=== PATIENT | male | born 1960 | race Caucasian/White ===

== ENCOUNTER 2023-04-07 10:12 | Outpatient (CLI) | payer OTHER, SELFPAY ==
--- NOTE | 2023-04-07 11:11 | ECG_ITS ---
Measurements Intervals [place] Rate: 71 P: 18 OK: 174 QRS: -12 QRSD: 98 T: 53 QT: 372 QTc: 407 Interpretive Statements SINUS RHYTHM MODERATE VOLTAGE CRITERIA FOR LVH, CONSIDER NORMAL VARIANT [MEETS CRITERIA IN ONE OF: R(aVL), S(V1), R(V5), R(V5/V6)+S(V1)] NO PREVIOUS ECG AVAILABLE FOR COMPARISON Electronically Signed On 04-07-2023 11:43:58 CDT by Marla See M.D.
[2023-04-07 12:38] LABS: Hemoglobin A1C 5.1 % (<5.7)
== END 2023-04-07 10:13 | disposition home or self-care (01) ==
LOC: ANHSURGERY 10:21
PROVIDERS: Visit Provider Urology
DX: Z01.818 Encounter for other preprocedural examination (principal); N52.9 Male erectile dysfunction, unspecified; I10 Essential (primary) hypertension
CPT/HCPCS: 36415; 83036; 87086; 93005

== ENCOUNTER 2023-11-05 10:30 | Outpatient (CLI) | payer OTHER, SELFPAY ==
[2023-11-05 13:14] LABS: Hemoglobin A1C 5.3 % (<5.7)
== END 2023-11-05 10:31 | disposition home or self-care (01) ==
LOC: ANHSURGERY 10:34
PROVIDERS: Visit Provider Urology
DX: Z01.818 Encounter for other preprocedural examination (principal); N52.9 Male erectile dysfunction, unspecified
CPT/HCPCS: 36415; 83036; 87086

== ENCOUNTER 2023-11-11 01:01 | Day surgery (SDC) | payer OTHER, SELFPAY ==
[2023-11-03 08:27] VITALS: BMI 31.2
--- NOTE | 2023-11-03 08:28 | PC.NURSE ---
Report to the Outpatient Waiting Room, entrance under the green pavilion located off [facility], at time _0830_ on date _[id number]_. Planned Procedure Time: _1030_. Time changes happen often and if your time is changed the preop area will call you the afternoon before. - You and your visitor will be asked to self-screen and do not enter if you have any COVID symptoms. - A mask is optional within the hospital at this time. Patients may have clear liquids (water, carbonated beverages, clear teas, apple juice) until 3 hours prior to surgery with a maximum of 20 ounces. - No food from midnight until time of surgery Take the following medications with a SIP of water the morning of surgery: __Amlodipine, Levothyroxine, Metoprolol and Sertraline. DO NOT STOP ANY OF YOUR OTHER PRESCRIPTION MEDICATIONS PRIOR TO SURGERY ?EXCEPT THE FOLLOWING Medications to discontinue per physician ___Vitamin D3 Date to take last zoxg__[id number]____ Check with Dr Duenas's office if need to hold Ibuprofen. Please no make-up, nail croatian, hairspray, perfume, deodorant, or body powder the day of surgery. No jewelry (including any body piercings) or valuables the day of surgery, leave them at home. Please take a shower or bath the night before, or the morning of, surgery with an antibacterial soap. Wear comfortable, loose fitting clothing. Children are encouraged to wear pajamas. - Jewelry must be removed prior to entering the operating room. Rings and piercings that are not removed may be cut off. - The hospital will not accept responsibility for valuables. - Please leave all valuables, including medications, at home the day of surgery. If you are going home after surgery, a licensed pack train driver must drive you home. - NO public transportation without another adult if you receive anesthesia. - We recommend that an adult stay with you for 24 hours following discharge. - We also recommend that you do not drive, make important decision, drink alcoholic beverages, or take any drugs that were not prescribed by your health care provider for at least 24 hours after your discharge time. For Pediatric surgeries, we recommend two adults accompany the child home. Follow any additional instructions given to you from your surgeon. If you or anyone in your household have experienced Covid symptoms in the past week, please notify your surgeon or the nurse liaison at the phone number below for possible testing. Telephone instructions given to __Michael__and asked if any additional questions and then verbalized understanding. Patient advised to call surgeon office or pre surgery nurse liaison [phone] if any additional questions.
[2023-11-11] VITALS (18 sets, daily range): BP systolic 93–158; BP diastolic 52–89; PULSE 67–85; RESP 12–20; TEMP 36.1–37.7; O2SAT 94–98
[2023-11-11] MEDS: LACTATED RINGERS 1,000 ML 30 ML IV CONT ×2 (08:30→15:12)
[2023-11-11] MEDS: GENTAMICIN SULFATE INJ 390 MG in DEXTROSE 5% 100 ML 109.75 MG IVPB (09:00)
[2023-11-11] MEDS: VANCOMYCIN 1,500 MG/NS 500 ML 1,500 MG/500 ML BAG 250 MG IVPB (09:00)
[2023-11-11] MEDS: SCOPOLAMINE 1 MG PATCH 1 PATCH TRANSDERM (09:43)
[2023-11-11] MEDS: diphenhydrAMINE HCl INJ 50 MG/ML VIAL IV PUSH (09:50)
--- NOTE | 2023-11-11 11:15 | WPDANESEPPF ---
Anes - Initial Pre Proc Eval Procedure: Operation Date: 11/11/23 10:30 Proposed Procedures p Insertion Penile Implant Prosthesis - Troy Duenas MD Date/Time: 11/11/23 11:15 Surgeon: Troy Duenas MD Pre Op Diagnosis: Erectile Dysfunction Patient Data Age: 63 Gender: M Height: 1.73 m Weight: 95 kg Last Vital Signs Temp 97.8 F 11/11/23 09:45 Pulse 85 11/11/23 09:45 Resp 14 11/11/23 09:45 BP 151/89 H 11/11/23 09:45 Pulse Ox 98 11/11/23 09:45 O2 Del Method Room Air 11/11/23 09:45 Allergies Allergy/AdvReac Type Severity Reaction Status Date / Time No Known Allergies Allergy Verified 11/11/23 09:42 Home Medications Medication Instructions Recorded Confirmed Type amlodipine 5 mg tablet 5 mg PO DAILY 04/07/23 11/03/23 History cholecalciferol (vitamin D3) 25 25 mcg PO DAILY 04/07/23 11/03/23 History mcg (1,000 unit) tablet ibuprofen 400 mg tablet 400 mg PO Q6H PRN Pain 04/07/23 11/03/23 History levothyroxine 50 mcg tablet 50 mcg PO DAILY 04/07/23 11/03/23 History (Synthroid) metoprolol tartrate 100 mg tablet 50 mg PO BID 04/07/23 11/03/23 History phentermine 37.5 mg capsule 37.5 mg PO DAILY 04/07/23 11/03/23 History sertraline 100 mg tablet 200 mg PO DAILY 04/07/23 11/03/23 History Patient hx anesthesia problems: none Family hx anesthesia problems: none Results Review: All pre-operative results and documents have been reviewed as part of the pre-operative evaluation. [facility] Social History Social History Smoking status: Never smoker Alcohol intake: current Drinks per week: 6 Living arrangements: with family Spiritual care concerns: No Anes - Eval Final PreProcedure Day of Procedure 11/11/23 11:15 Patient weight: obese Heart: regular rate and rhythm Lungs: clear to auscultation Airway: Mallampati scale class III Neurological: alert and oriented Last oral intake: >/= 8 hours ASA classification: III Emergent: no Anesthetic plan: proceed Anesthesia type and monitoring: general LMA and standard monitoring Results Review: All pre-operative results and documents have been reviewed as part of the pre-operative evaluation. Informed Consent: The patient's anesthetic plan and its attendant risks and benefits were discussed with the patient/family/POA. Questions were solicited and answers provided to the satisfaction of the patient/family/POA.
--- NOTE | 2023-11-11 11:44 | SUR.PREOP ---
0950: PT C/O ITCHING. BENADRYL ORDER RC'VD. DR. REEVES AWARE VANCO INFUSION DECREASED TO 125ML/HR. DR. REEVES MADE AWARE THAT PT TK ONE DOSE OF PROPHYLACTIC PO LEVAQUIN YESTERDAY @ 2200 ONLY BUT DID COMPLETE HIS SCRUBS AT HOME.
--- NOTE | 2023-11-11 11:52 | WPDHPUPDATE1 ---
History and Physical Update Update Date/Time: 11/11/23 11:52 History and Physical has been reviewed, including an updated exam of the patient. There are NO changes in the patient's condition. Risks, benefits, and alternatives have been discussed and questions answered. Patient agrees to proceed with procedure.
[2023-11-11] MEDS: ceFAZolin SODIUM 1 GM VIAL (13:27)
[2023-11-11] MEDS: LIDOCAINE HCL 1% LOCAL INJ 20 ML VIAL INFILTRATE (13:31)
[2023-11-11] MEDS: BUPivacaine HCL 0.25% PF 30 ML VIAL INFILTRATE (13:32)
--- NOTE | 2023-11-11 15:07 | P.OP_ITS ---
Procedure Note - Detailed Date of Procedure 11/11/23 Pre-op Diagnosis Erectile Dysfunction Post-op Diagnosis Same Procedure Performed 1. Insertion of 3-piece inflatable penile prosthesis. 2. Artificial erection using pharmacological agent. Surgeon Troy Duenas MD Anesthesia General Description of Procedure Informed consent obtained, patient taken to the operating room and given preoperative IV antibiotics with vancomycin and gentamicin. Additionally the patient has been taking oral levofloxacin and done a 3-day wash with Hibiclens. The patient was shaved. He was then prepped with Betadine scrub and paint followed by ChloraPrep. Sterile drapes were placed. We again prepped with ChloraPrep. A 16-[place] Tejada catheter was inserted with return of clear urine. We then performed a pharmacologically induced erection with dilute lidocaine. There was a symmetric, straight erection. We then made a penoscrotal 3 cm incision. We dissected bluntly down to identify the corporal bodies taking great care not to injure the urethra. Stay sutures of 2-0 PDS were placed in the corporal body. We sharply opened the corpora. We then serially dilated up to a 12 Ruiz dilator. We then measured the corpora. Measurements were 12.5 cm proximally and 8.5 cm distally. We irrigated and there was no injury. We then performed an identical procedure on the contralateral side. Measurements were 12.5 cm proximally and 8.5 cm distally. Dilators were placed into the corpora bilaterally confirming that there was no crossover. We elected to place an AMS LGX device 18 cm + 3 cm of rear tip extenders. We again irrigated the corporal bodies. We then inserted the prosthesis. We inflated using a surrogate reservoir and the device sat nicely with tips in the mid glans. We then deflated. We then closed the pre-placed 2-0 PDS sutures. We again inflated using the surrogate reservoir with an excellent cosmetic result. We then made a right lower quadrant incision for approximately 2 cm. We bluntly dissected down to the external oblique fascia. The fascia was opened. We then the rectus muscle and created a space superiorly in the sub rectus. We emptied the bladder prior to our incision. We then irrigated copiously. We pre- placed 0 Vicryl sutures. We placed the reservoir in the sub rectus space. We fill it with 100 mL and there was no back pressure. We then left 100 mL in the reservoir. Our pre-placed external oblique fascia sutures were closed. We then made a subdartos pouch in the midline for the pump placement. It sat nicely in the inferior scrotum. We then closed the hiatus with 3-0 Vicryl suture. The tubing was then brought up to the abdominal incision. Using the quick connect device, we connected the pump to the reservoir. We then cycled the device again and it functioned nicely. We did note some oozing from the corporotomies bilaterally, therefore we elected to place a 10 F drain through the right lateral scrotum. We then removed the stay sutures through the glans. We then again irrigated copiously. We closed the scrotal incision with a transverse followed by longitudinal 3-0 Vicryl and then 4-0 Monocryl skin closure. The right lower quadrant incision was closed with 2-0 Vicryl to Ashley's, 3-0 Vicryl deep dermal layer and a 4-0 Monocryl subcuticular closure. Glue was placed over all incisions. A compressive dressing was placed. Patient was awakened and taken to recovery room in stable condition. Implants AMS LGX device 18 cm + 3 cm of rear tip extenders. Drains Yes Pathology None sent Complications No immediate complications Disposition PACU
[2023-11-11] MEDS: fentaNYL CITRATE INJ (*CRX) 100 MCG/2 ML VIAL 25 MCG IV PUSH ×2 (15:46→15:50)
--- NOTE | 2023-11-11 17:23 | ADMGEN ---
This patient, Sriram Dillard, was admitted to 3 [facility] Surg Room 313-01. Patient/family oriented to hospital policies and general routines including ID bracelet, bed and alarms, visiting hours, pain management, procedures, bathroom and other care routines, personal items, smoking policy, room service/diet, and visiting hours. Information on how to activate the Rapid Response Team has been discussed. Patient/Family are encouraged to report perceived risks to care and to ask questions if they do not understand what they are told or what they should do.
[2023-11-11] MEDS: HYDROcodone/acetaminophen (*CRX) 5-325 MG TABLET 1 TAB PO (18:27)
[2023-11-11] MEDS: DEXTROSE 5%/0.45% SOD CHL 1,000 ML 125 ML IV CONT (18:27)
[2023-11-11] MEDS: VANCOMYCIN 1,000 MG/NS 250 ML 1,000 MG/250 ML BAG 250 MG IVPB (21:55)
[2023-11-11] MEDS: MORPHINE SULFATE (*CRX) 2 MG/ML INJ IV PUSH (22:02)
[2023-11-12] MEDS: MORPHINE SULFATE (*CRX) 2 MG/ML INJ IV PUSH ×2 (03:42→09:11)
[2023-11-12] MEDS: DEXTROSE 5%/0.45% SOD CHL 1,000 ML 125 ML IV CONT (03:44)
[2023-11-12 05:17] VITALS: BP 122/69; PULSE 72; RESP 20; TEMP 36.3; O2SAT 97
[2023-11-12 08:00] VITALS: BP 131/73; PULSE 72; RESP 18; TEMP 36.6; O2SAT 97
[2023-11-12] MEDS: GENTAMICIN 80MG/SOD CHL 50 ML 80 MG/50 ML BAG 100 MG IVPB (08:04)
--- NOTE | 2023-11-12 08:08 | WPDANESPN ---
Anes - Prog Note Post-Op Date/Time: 11/12/23 08:08 Cardiovascular status: normal Respiratory status: normal Airway patency: baseline Mental status: baseline Post-Op hydration status: normal Vital Signs: Last Vital Signs Temp 36.3 C L 11/12/23 05:17 Pulse 72 11/12/23 05:17 Resp 20 11/12/23 05:17 BP 122/69 11/12/23 05:17 Pulse Ox 97 11/12/23 05:17 O2 Del Method Nasal Cannula 11/11/23 21:47 O2 Flow Rate 2 11/11/23 21:47 Pain Score (VAS): 3/10 I/O: Intake & Output 11/11/23 11/12/23 11/12/23 23:59 07:59 15:59 Intake Total 1050 1600 Output Total 430 1610 Balance 620 -10 Post-procedural complaints: none Patient Feedback: Patient satisfied with anesthetic care.
[2023-11-12] MEDS: VANCOMYCIN 1,000 MG/NS 250 ML 1,000 MG/250 ML BAG 250 MG IVPB (09:06)
--- NOTE | 2023-11-12 13:42 | P.DS_ITS ---
DS: Admitting Diagnosis Discharge Date 11/12/23 Admitting Diagnosis Erectile dysfunction DS: Discharge Diagnosis Discharge Diagnosis (1) Erectile dysfunction: Code(s): N52.9 - Male erectile dysfunction, unspecified Status: Acute DS: Summary Hospital Course Hospital Course: Patient presented to [place] on 11/11/2023 for surgery. He underwent insertion of 3-piece inflatable penile prosthesis on 11/11/[address] Duenas. He tolerated this procedure well. His pain was well controlled. His Tejada catheter was removed on postoperative day 1 and he was able to void without difficulty. He had a right scrotal drain placed with minimal output, about 15 cc serosanguinous fluid. The drain was removed without difficulty on POD1. He was ambulating without difficulty. He was tolerating his diet. He felt comfortable with plans for discharge home. He will continue a course of Bactrim and was provided with [place] as needed for pain. Instructed to continue stool softeners. Written postoperative instructions were provided. He will follow-up with Dr. Duenas on 11/27/2023. Time Spent with Patient Time attestation: Total time spent providing and/or coordinating discharge services: 35 minutes Time spent: Greater than 30 minutes Exam Narrative: General: Awake, alert, comfortable, no acute distress HEENT: Normocephalic, atraumatic, sclerae anicteric Respiratory: Normal respiratory effort, no accessory muscle use Abdomen: Nondistended, soft, nontender : normal penis and glans, normal scrotum without swelling Skin: Normal coloration, warm and dry Neurologic: No focal neuro deficits noted Psychiatric: Appropriate mood and affect, judgment and insight intact Discharge Plan Discharge Patient Disposition: Home, Self-Care Discharge Instructions: Remove the Scopolamine patch that was placed behind your ear in 72 hours or less. Wash your hands after touching. Stand Alone Forms: General Discharge Instructions Follow-up/Referrals: Troy Duenas MD [Physician] - 11/27/23 9:45 am Discharge Medications: Continued sertraline 100 mg tablet 200 mg PO DAILY amlodipine 5 mg tablet 5 mg PO DAILY phentermine 37.5 mg capsule 37.5 mg PO DAILY metoprolol tartrate 100 mg tablet 50 mg PO BID cholecalciferol (vitamin D3) 25 mcg (1,000 unit) Tablet 25 mcg PO DAILY levothyroxine [Synthroid] 50 mcg tablet 50 mcg PO DAILY ibuprofen 400 mg Tablet 400 mg PO Q6H PRN (Reason: Pain)
== END 2023-11-12 14:12 | disposition home or self-care (01) ==
LOC: ANHSURGERY 09:44 → ANH3MEDSUR 17:03
PROVIDERS: Visit Provider Urology
PROC: (CPT 54405; principal; 2023-11-11 10:30)
DX: N52.9 Male erectile dysfunction, unspecified (principal); E66.9 Obesity, unspecified; Z68.31 Body mass index [BMI] 31.0-31.9, adult
CPT/HCPCS: 54405; 54235; A9270; C1813; J0690; J1200; J1580; J2250; J2270; J3010; J3370; J7030; J7120